=== PATIENT | female | born 1990 | race Two or more races ===

== ENCOUNTER 2016-09-25 21:36 | Emergency (ER) | payer SELFPAY ==
[2016-09-26 00:50] LABS: ABSOLUTE EOSINOPHILS # (AUTO) 0.1 10^3/uL (0.0-0.6); ABSOLUTE LYMPHOCYTES (AUTO) 2.6 10^3/uL (0.5-4.7); ABSOLUTE MONOCYTES (AUTO) 0.6 10^3/uL (0.1-1.4); ABSOLUTE NEUT (AUTO) 3.4 10^3/uL (1.7-8.2); BASOPHILS % (AUTO) 0.4 % (0-2); HEMATOCRIT 38.3 % (36.0-47.0); HEMOGLOBIN 13.3 g/dL (12.0-15.5); HGB HCT DIFFERENCE 1.6; MEAN CORPUSCULAR HEMOGLOBIN 31.3 pg (27.0-33.4); MEAN CORPUSCULAR HGB CONC 34.6 g/dL (32.0-36.0); MEAN CORPUSCULAR VOLUME 91 fl (80-97); MONOCYTES % (AUTO) 9.1 % (3-13); RED BLOOD COUNT 4.24 10^6/uL (3.72-5.28); RED CELL DISTRIBUTION WIDTH 13.3 % (11.5-14.0); SEGMENTED NEUTROPHILS % (AUTO) 50.5 % (42-78); WHITE BLOOD COUNT 6.8 10^3/uL (4.0-10.5)
[2016-09-26 01:05] LABS: ALANINE AMINOTRANSFERASE 28 U/L (9-52); ALBUMIN 4.5 g/dL (3.5-5.0); ALKALINE PHOSPHATASE 82 U/L (38-126); ANION GAP 14 (5-19); APPEARANCE,URINE SLIGHTLY-CLOUDY; ASPARTATE AMINO TRANSFERASE 22 U/L (14-36); BILIRUBIN,DIRECT 0.2 mg/dL (0.0-0.4); BILIRUBIN,TOTAL 0.6 mg/dL (0.2-1.3); BILIRUBIN,URINE NEGATIVE (NEGATIVE); BLOOD UREA NITROGEN 9 mg/dL (7-20); CALCIUM 9.6 mg/dL (8.4-10.2); CARBON DIOXIDE 24 mmol/L (22-30); CHLORIDE 106 mmol/L (98-107); GLUCOSE 84 mg/dL (75-110); GLUCOSE, URINE NEGATIVE (NEGATIVE); KETONES,URINE NEGATIVE (NEGATIVE); LEUKOCYTE ESTERASE,URINE TRACE (NEGATIVE); LIPASE 71.8 U/L (23-300); NITRITE,URINE NEGATIVE (NEGATIVE); POTASSIUM 3.9 mmol/L (3.6-5.0); PROTEIN,URINE NEGATIVE (NEGATIVE); SODIUM 144.4 mmol/L (137-145); TOTAL PROTEIN 7.7 g/dL (6.3-8.2); URINE SPECIFIC GRAVITY 1.013; UROBILINOGEN,URINE NEGATIVE mg/dL (<2.0)
[2016-09-26] MEDS ORDERED: HYDROCODONE/ACETAMINOPHEN 5-325 MG 6 TAB/DSPK PO PRN (02:55)
[2016-09-26] MEDS ORDERED: FAMOTIDINE 20 MG TABLET PO ONE (02:55)
[2016-09-26] MEDS ORDERED: ONDANSETRON 4 MG TAB.RAPDIS PO ONE (02:55)
--- NOTE | 2016-09-26 02:57 | ER Document Report ---
ED GI/ - General Chief Complaint: Abdominal Pain Stated Complaint: ABDOMINAL PAIN Time seen by provider: 02:55 Notes: Patient is a 26-year-old female that comes emergency department with chief complaint of vomiting and diarrhea, symptoms started almost 3 days ago, she reports some chills but denies fever. Patient states that vomiting stopped yesterday and today she has had about 4-5 episodes of diarrhea, nonbloody. LMP about a week ago. Patient denies flank pain, dysuria, vaginal discharge, she reports abdominal pain that is crampy and intermittent. She denies any daily medications or medical history. Denies any surgeries. TRAVEL OUTSIDE OF THE [place] IN LAST 30 DAYS: No - Related Data Allergies/Adverse Reactions: No Known Allergies Allergy (Unverified 09/25/16 22:03) Past Medical History - General Information source: Patient - Social History Smoking Status: Never Smoker Frequency of alcohol use: None Drug Abuse: None Lives with: Family Family History: Reviewed & Not Pertinent Patient has suicidal ideation: No Patient has homicidal ideation: No - Medical History Medical History: Negative Renal/ Medical History: Denies: Hx Peritoneal Dialysis Surgical Hx: Negative - Immunizations Immunizations up to date: Yes Hx Diphtheria, Pertussis, Tetanus Vaccination: Yes Review of Systems - Review of Systems Constitutional: See HPI EENT: No symptoms reported Cardiovascular: No symptoms reported Respiratory: No symptoms reported Gastrointestinal: See HPI Genitourinary: No symptoms reported Female Genitourinary: No symptoms reported Musculoskeletal: No symptoms reported Skin: No symptoms reported Hematologic/Lymphatic: No symptoms reported Neurological/Psychological: No symptoms reported Physical Exam - Vital signs Vitals: Temp Pulse Resp BP Pulse Ox 98.3 F 80 20 127/87 H 100 09/25/16 22:03 09/25/16 22:03 09/25/16 22:03 09/25/16 22:03 09/25/16 22:03 Interpretation: Normal - General General appearance: Appears well, Alert In distress: None - Alert and well-appearing - HEENT Head: Normocephalic, Atraumatic Eyes: Normal Eyelashes: Normal Pupils: PERRL Ears: Normal Sinus: Normal Nasal: Normal Mouth/Lips: Normal Mucous membranes: Dry - Slightly dry lips but moist membranes otherwise Pharynx: Normal Neck: Normal - Respiratory Respiratory status: No respiratory distress Chest status: Nontender Breath sounds: Normal. No: Decreased air movement, Wheezing Chest palpation: Normal - Cardiovascular Rhythm: Regular Heart sounds: Normal auscultation Murmur: No - Abdominal Inspection: Normal Distension: No distension Bowel sounds: Normal Tenderness: Tender - Very mild and generalized tenderness, slightly worse in the left upper quadrant, generally unremarkable, no guarding Organomegaly: No organomegaly - Back Back: Normal, Nontender. No: Tender - Extremities General upper extremity: Normal inspection, Nontender, Normal color, Normal ROM , Normal temperature General lower extremity: Normal inspection, Nontender, Normal color, Normal ROM , Normal temperature, Normal weight bearing. No: Marcelo's sign - Neurological Neuro grossly intact: Yes Cognition: Normal Orientation: AAOx4 Jar[place]o Coma Scale Eye Opening: Spontaneous [place] Coma Scale Verbal: Oriented [place] Coma Scale Motor: Obeys Commands [place] Coma Scale Total: 15 Speech: Normal Motor strength normal: LUE, RUE, LLE, RLE Sensory: Normal - Psychological Associated symptoms: Normal affect, Normal mood - Skin Skin Temperature: Warm Skin Moisture: Dry Skin Color: Normal Course - Re-evaluation Re-evalutation: Benign abdomen with mild left upper quadrant pain, no guarding, alert and well- appearing, slightly dry lips but moist mucous membranes, no tachycardia or hypotension. Vital signs unremarkable. CBC, chemistry, urinalysis unremarkable. I asked patient for stool sample but she states that she will not be able to give me one. Clinical picture, exam, workup most consistent with a viral syndrome. Patient provided with medication for this, discussed follow-up, discussed return precautions, patient and mother state understanding and agreement. Evaluation and examination performed with assistance of [employer] interpretation system. - Vital Signs Vital signs: Temp Pulse Resp BP Pulse Ox 98.3 F 71 14 121/74 99 09/26/16 00:26 09/26/16 03:13 09/26/16 03:13 09/26/16 03:13 09/26/16 03:13 - Laboratory Result Diagrams: 09/26/16 00:33 09/26/16 00:33 Laboratory results interpreted by me: 09/26/16 00:33 Ur Leukocyte Esterase TRACE H Discharge - Discharge Clinical Impression: Nausea vomiting and diarrhea Condition: Stable Disposition: HOME, SELF-CARE Additional Instructions: Examination, laboratory tests, and symptoms show this is probably a virus which should go away. Take the Pepcid for your stomach, take the Phenergan if you feel like you will vomit, drink a lot of water, and rest. Take the pain medication he was given tonight if you need to. Follow-up with primary care. Return to the emergency department if something is worse or is not right. Prescriptions: Famotidine [Pepcid 20 mg Tablet] 20 mg PO BID #14 tablet Promethazine HCl [Phenergan 25 mg Tablet] 1 - 2 tab PO Q6H PRN #15 tablet PRN Reason:
[2016-09-26 03:16] VITALS: BP 121/74
== END 2016-09-26 03:15 | disposition home or self-care (01) ==
LOC: ER 21:36
DX: R11.2 Nausea with vomiting, unspecified (principal); R19.7 Diarrhea, unspecified; R10.9 Unspecified abdominal pain
CPT/HCPCS: 99284; 36415; 83690; 85025; 81025; 80053; 81001; S0119